=== PATIENT | male | born 1945 | race Caucasian/White ===

== ENCOUNTER 2018-04-14 12:32 | Emergency (ER) | payer OTHER, BC ==
--- NOTE | 2018-04-14 14:08 | EDPHYS ---
Physician Documentation [facility] Name: Dennys Hassan Age: 72 yrs Sex: Male : 1945 Arrival Date: 04/14/2018 Time: 12:36 Bed Treatment Private MD: Wilton Lam V ED Physician Daniel Robertson HPI: 04/14 14:01 This 72 yrs old Male presents to ER via Ambulatory with complaints of BIT jr8 TONGUE. 14:01 Onset: The symptoms/episode began/occurred acutely, today. Associated signs and jr8 symptoms: The patient has no apparent associated signs or symptoms. Severity of symptoms: At their worst the symptoms were mild, in the emergency department the symptoms are unchanged. The patient has not experienced similar symptoms in the past. The patient has not recently seen a physician. 14:01 Bit tongue while chewing . 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 - Social history:: Smoking status: Patient/guardian denies using tobacco. - Ebola Screening: : No symptoms or risks identified at this time. ROS: 14:01 Eyes: Negative for injury, pain, redness, and discharge, Neck: Negative for injury, jr8 pain, and swelling, Cardiovascular: Negative for chest pain, palpitations, and edema, Respiratory: Negative for shortness of breath, cough, wheezing, and pleuritic chest pain, Abdomen/GI: Negative for abdominal pain, nausea, vomiting, diarrhea, and constipation, Back: Negative for injury and pain, MS/Extremity: Negative for injury and deformity, Skin: Negative for injury, rash, and discoloration, Neuro: Negative for headache, weakness, numbness, tingling, and seizure. 14:01 ENT: Positive for tongue pain . Exam: 14:01 Head/Face: Normocephalic, atraumatic. Neck: Trachea midline, no thyromegaly or masses jr8 palpated, and no cervical lymphadenopathy. Supple, full range of motion without nuchal rigidity, or vertebral point tenderness. No Meningismus. Cardiovascular: Regular rate and rhythm with a normal S1 and S2. No gallops, murmurs, or rubs. Normal PMI, no JVD. No pulse deficits. Respiratory: Lungs have equal breath sounds bilaterally, clear to auscultation and percussion. No rales, rhonchi or wheezes noted. No increased work of breathing, no retractions or nasal flaring. Skin: Warm, dry with normal turgor. Normal color with no rashes, no lesions, and no evidence of cellulitis. MS/ Extremity: Pulses equal, no cyanosis. Neurovascular intact. Full, normal range of motion. Neuro: Awake and alert, GCS 15, oriented to person, place, time, and situation. Cranial nerves II-XII grossly intact. Motor strength 5/5 in all extremities. Sensory grossly intact. Cerebellar exam normal. Normal gait. 14:01 ENT: Exam is negative for earache, ear discharge, TM abnormalities, nasal discharge, Mouth: Lips: moist, Oral mucosa: pink and intact, moist, Gums: pink, Tongue: is moist, small less then 1 cm superficial laceration noted to left side of tongue. Vital Signs: 12:45 BP 134 / 65; Pulse 65; Resp 18; Temp 98.6; Pulse Ox 96% ; Weight 90.72 kg; Height 5 ft. sv 8 in. (172.72 cm); Pain 0/10; 12:45 Body Mass Index 30.41 (90.72 kg, 172.72 cm) sv MDM: 13:26 Patient medically screened. [facility] 14:01 Data reviewed: vital signs, nurses notes, and as a result, I will discharge patient. [facility] Data interpreted: Pulse oximetry: on room air is 96 %. Interpretation: normal. Counseling: I had a detailed discussion with the patient and/or guardian regarding: the historical points, exam findings, and any diagnostic results supporting the discharge/admit diagnosis, the need for outpatient follow up, a family practitioner, to return to the emergency department if symptoms worsen or persist or if there are any questions or concerns that arise at home. ED course: Discussed with patient that laceration is superficial. Does not require suture repair. To try and let that side of mouth rest. Soft diet for a few days. Patient good with this and will follow up . Administered Medications: No medications were administered Disposition: 04/15 06:54 Co-signature as Attending Physician, Daniel Robertson MD I agree with the assessment and raúl plan of care. Disposition: 04/14/18 14:07 Discharged to Home. Impression: Laceration tongue . - Condition is Stable. - Discharge Instructions: Tongue Laceration. - Medication Reconciliation Form, Thank You Letter, Antibiotic Education, Prescription Opioid Use form. - Follow up: Private Physician; When: 1 week; Reason: Recheck today's complaints, Continuance of care, Re-evaluation by your physician. - Problem is new. - Symptoms have improved. Signatures: Vidya Parker RN Donya Hassan RN RN aj Anderson, Corey, MD MD cha Roszak, Josh, PA PA jr8 Corrections: (The following items were deleted from the chart) 04/14 14:27 14:07 04/14/2018 14:07 Discharged to Home. Impression: Laceration tongue . Condition is aj Stable. Forms are Medication Reconciliation Form, Thank You Letter, Antibiotic Education, Prescription Opioid Use. Follow up: Private Physician; When: 1 week; Reason: Recheck today's complaints, Continuance of care, Re-evaluation by your physician. Problem is new. Symptoms have improved. jr8
--- NOTE | 2018-04-14 14:08 | ER ---
Nurse's Notes [facility] Name: Dennys Hassan Age: 72 yrs Sex: Male : 1945 Arrival Date: 04/14/2018 Time: 12:36 Bed Treatment Private MD: Wilton Lam V Diagnosis: Laceration tongue Presentation: 04/14 12:43 Presenting complaint: Patient states: bit tongue on the left side about an hour ago sv while eating. Transition of care: patient was not received from another setting of care. Onset of symptoms was April 14, 2018. Care prior to arrival: None. 12:43 Method Of Arrival: Ambulatory sv 12:43 Acuity: TRACI 4 sv 14:27 Risk Assessment: Do you want to hurt yourself or someone else? Patient reports no aj desire to harm self or others. Initial Sepsis Screen: Does the patient meet any 2 criteria? No. Patient's initial sepsis screen is negative. Does the patient have a suspected source of infection? No. Patient's initial sepsis screen is negative. Triage Assessment: 12:43 General: Appears in no apparent distress. Behavior is calm, cooperative, appropriate sv for age. Pain: Complains of pain in tongue Pain currently is 1 out of 10 on a pain scale. EENT: laceration noted to left side of tongue. Neuro: Level of Consciousness is awake, alert, obeys commands, Oriented to person, place, time, situation, Moves all extremities. Full function Gait is steady. Respiratory: Respiratory effort is even, unlabored, Respiratory pattern is regular, symmetrical. Derm: Skin is normal. 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 - Social history:: Smoking status: Patient/guardian denies using tobacco. - Ebola Screening: : No symptoms or risks identified at this time. Screenin:37 Abuse screen: Denies threats or abuse. Denies injuries from another. Nutritional aj screening: No deficits noted. Tuberculosis screening: No symptoms or risk factors identified. Fall Risk None identified. Assessment: 13:35 General: Appears in no apparent distress. comfortable, Behavior is calm, cooperative, aj appropriate for age. Neuro: Level of Consciousness is awake, alert, obeys commands, Oriented to person, place, time, situation, Appropriate for age. Respiratory: Airway is patent Respiratory effort is even, unlabored, Respiratory pattern is regular, symmetrical. EENT: Reports Bite to left side of tongue, small amount of bleeding. 13:36 Derm: Skin is intact, is healthy with good turgor, Skin is pink, warm \T\ dry. normal. aj Vital Signs: 12:45 BP 134 / 65; Pulse 65; Resp 18; Temp 98.6; Pulse Ox 96% ; Weight 90.72 kg; Height 5 ft. sv 8 in. (172.72 cm); Pain 0/10; 12:45 Body Mass Index 30.41 (90.72 kg, 172.72 cm) sv ED Course: 12:36 Patient arrived in ED. rg4 12:36 Wilton Lam MD is Private Physician. rg4 12:44 Triage completed. sv 12:45 Arm band placed on left wrist. sv 13:18 Donya Tubbs, RN is Primary Nurse. aj 13:26 Farhad Antonio PA is PHCP. jr8 13:26 Daniel Robertson MD is Attending Physician. jr8 14:26 Patient has correct armband on for positive identification. aj 14:26 No provider procedures requiring assistance completed. Patient did not have IV access aj during this emergency room visit. Administered Medications: No medications were administered Outcome: 14:07 Discharge ordered by . jr8 14:26 Discharged to home ambulatory. aj 14:26 Condition: good 14:26 Discharge instructions given to patient, Instructed on discharge instructions, follow up and referral plans. Demonstrated understanding of instructions, follow-up care. 14:27 Patient left the ED. aj Signatures: Vidya Parker RN RN Donya Tubbs RN RN aj Roszak, Josh, PA PA jr8 Fely Perez rg4 Corrections: (The following items were deleted from the chart) 12:46 12:43 Acuity: TRACI 5 sv sv
== END 2018-04-14 14:27 | disposition home or self-care (01) ==
LOC: ER 12:32
DX: S01.512A Laceration without foreign body of oral cavity, initial encounter (principal); I10 Essential (primary) hypertension; X58.XXXA Exposure to other specified factors, initial encounter; Y93.89 Activity, other specified; Y92.9 Unspecified place or not applicable; Y99.9 Unspecified external cause status
CPT/HCPCS: 99281

== ENCOUNTER 2020-06-06 09:26 | Emergency (ER) | payer OTHER, BC ==
--- NOTE | 2020-06-06 10:40 | RAD REPORT ---
EXAM DESCRIPTION: RAD - Foot Left 3 View - 06/06/2020 10:15 am CLINICAL HISTORY: PAIN COMPARISON: No comparisons FINDINGS: Small fracture is suspected along the dorsal base of distal phalanx of the great toe media lly.
--- NOTE | 2020-06-06 11:29 | EDPHYS ---
Physician Documentation [facility] Name: Dennys Hassan Age: 74 yrs Sex: Male : 1945 Arrival Date: 06/06/2020 Time: 09:28 Bed 6 Private MD: Wilton Lam V ED Physician Ramón Moore HPI: 06/06 09:58 This 74 yrs old Male presents to ER via Ambulatory with complaints of Toe pm1 Injury. 09:58 The patient presents with pain, that is acute. The complaints affect the left foot. pm1 Context: The problem was sustained at home, resulted from stubbing toe on door. the patient can fully bear weight, the patient is able to ambulate. Onset: The symptoms/episode began/occurred 1.5 hour(s) ago. Modifying factors: The symptoms are alleviated by OTC meds, the symptoms are aggravated by weight bearing. Associated signs and symptoms: Pertinent positives: swelling, Tenderness, Pertinent negatives: fever, nausea, vomiting. Severity of symptoms: in the emergency department the symptoms have improved, moderately. The patient has not experienced similar symptoms in the past. 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 - Social history:: Smoking status: Patient denies any tobacco usage or history of. ROS: 09:58 MS/extremity: Positive for pain, swelling, of the left first toe, Negative for pm1 decreased range of motion, deformity. 09:58 Constitutional: Negative for fever, chills, and weight loss, Cardiovascular: Negative for chest pain, palpitations, and edema, Respiratory: Negative for shortness of breath, cough, wheezing, and pleuritic chest pain, Skin: Negative for injury, rash, and discoloration, Neuro: Negative for headache, weakness, numbness, tingling, and seizure. 09:58 All other systems are negative. Exam: 09:58 Constitutional: This is a well developed, well nourished patient who is awake, alert, pm1 and in no acute distress. Head/Face: Normocephalic, atraumatic. 09:58 Skin: Warm, dry with normal turgor. Normal color with no rashes, no lesions, and no evidence of cellulitis. 09:58 Cardiovascular: Exam negative for acute changes, Rate: normal, Rhythm: regular, Pulses: no pulse deficits are appreciated. 09:58 Respiratory: Exam negative for acute changes, respiratory distress, shortness of breath. 09:58 Musculoskeletal/extremity: Extremities: grossly normal except: noted in the left first toe: There is no evidence of decreased ROM, deformity. 09:58 Neuro: Exam negative for acute changes, Orientation: is normal, Mentation: is normal, Motor: is normal, moves all fours. Vital Signs: 09:35 BP 137 / 73; Pulse 71; Resp 16; Temp 98; Pulse Ox 98% ; Weight 86.18 kg; Height 5 ft. 8 bp in. (172.72 cm); 11:49 BP 131 / 69; Pulse 65; Resp 17; Temp 98; Pulse Ox 98% ; bp 09:35 Body Mass Index 28.89 (86.18 kg, 172.72 cm) bp MDM: 09:30 Patient medically screened. pm1 09:56 Data reviewed: vital signs. Data interpreted: Pulse oximetry: on room air is 98 %. pm1 Interpretation: normal. 09:56 ED course: patient took Aleve 1.5 hours prior to arrival that has helped. Patient would pm1 like additional pain medication but he drove here by himself. Informed the patient that I would give him a prescription for pain medications but driving home on narcotic medications given in the ER would not be safe. 11:28 Counseling: I had a detailed discussion with the patient and/or guardian regarding: the pm1 historical points, exam findings, and any diagnostic results supporting the discharge/admit diagnosis, radiology results, the need for outpatient follow up, a shift foreman, to return to the emergency department if symptoms worsen or persist or if there are any questions or concerns that arise at home. 06/06 09:39 Order name: Foot Left 3 View XRAY; Complete Time: 11:01 pm1 06/06 11:32 Order name: Post-op Orthopedic Shoe; Complete Time: 11:48 pm1 06/06 11:32 Order name: Crutches; Complete Time: 11:48 pm1 Administered Medications: No medications were administered Disposition: 14:27 Co-signature as Attending Physician, Ramón Moore MD. rn Disposition: 06/06/20 11:29 Discharged to Home. Impression: Nondisplaced fracture of distal phalanx of left great toe. - Condition is Stable. - Discharge Instructions: Crutch Use, Toe Fracture. - Prescriptions for Tylenol- Codeine #3 300-30 mg Oral Tablet - take 2 tablets by ORAL route every 6 hours As needed; 20 tablet. - Medication Reconciliation Form, Thank You Letter, Antibiotic Education, Prescription Opioid Use form. - Follow up: Emergency Department; When: As needed; Reason: Worsening of condition. Follow up: Private Physician; When: 2 - 3 days; Reason: Recheck today's complaints, Continuance of care, Re-evaluation by your physician. - Problem is new. - Symptoms have improved. Signatures: Dispatcher [employer] EDRamón Yu MD MD rn Jose L Hoffman, CHAIR PAD MAKER CHAIR PAD MAKER pm1 Nelson Gloria, RN RN bp Corrections: (The following items were deleted from the chart) 11:56 11:29 06/06/2020 11:29 Discharged to Home. Impression: Nondisplaced fracture of distal bp phalanx of left great toe. Condition is Stable. Forms are Medication Reconciliation Form, Thank You Letter, Antibiotic Education, Prescription Opioid Use. Follow up: Emergency Department; When: As needed; Reason: Worsening of condition. Follow up: Private Physician; When: 2 - 3 days; Reason: Recheck today's complaints, Continuance of care, Re-evaluation by your physician. Problem is new. Symptoms have improved. pm1
--- NOTE | 2020-06-06 11:29 | ER ---
Nurse's Notes [facility] Name: Dennys Hassan Age: 74 yrs Sex: Male : 1945 Arrival Date: 06/06/2020 Time: 09:28 Bed 6 Private MD: Wilton Lam V Diagnosis: Nondisplaced fracture of distal phalanx of left great toe Presentation: 06/06 09:35 Chief complaint: Patient states: STUBBED LEFT GREAT TOE. Coronavirus screen: At this bp time, the client does not indicate any symptoms associated with coronavirus-19. Ebola Screen: No symptoms or risks identified at this time. Initial Sepsis Screen: Does the patient meet any 2 criteria? No. Patient's initial sepsis screen is negative. Does the patient have a suspected source of infection? No. Patient's initial sepsis screen is negative. Risk Assessment: Do you want to hurt yourself or someone else? Patient reports no desire to harm self or others. Onset of symptoms was June 06, 2020 at 08:00. 09:35 Method Of Arrival: Ambulatory bp 09:35 Acuity: TRACI 4 bp Triage Assessment: 09:37 General: Appears in no apparent distress. uncomfortable, Behavior is cooperative, bp appropriate for age, anxious. Pain: Complains of pain in plantar aspect of left first toe. EENT: No deficits noted. Neuro: No deficits noted. Cardiovascular: No deficits noted. Respiratory: No deficits noted. GI: No signs and/or symptoms were reported involving the gastrointestinal system. : No signs and/or symptoms were reported regarding the genitourinary system. Derm: No deficits noted. Musculoskeletal: Reports pain in LEFT GREAT TOE. 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 - Social history:: Smoking status: Patient denies any tobacco usage or history of. Screenin:39 Abuse screen: Denies threats or abuse. Denies injuries from another. Nutritional bp screening: No deficits noted. Tuberculosis screening: No symptoms or risk factors identified. Fall Risk None identified. Assessment: 09:39 General: SEE TRIAGE NOTE. bp 09:49 Reassessment: xray at bedside. jr10 11:48 Reassessment: PT D/C HOME AMBULATORY, DX WITH NONDISPLACED FX OF LEFT GREAT TOE. bp Vital Signs: 09:35 BP 137 / 73; Pulse 71; Resp 16; Temp 98; Pulse Ox 98% ; Weight 86.18 kg; Height 5 ft. 8 bp in. (172.72 cm); 11:49 BP 131 / 69; Pulse 65; Resp 17; Temp 98; Pulse Ox 98% ; bp 09:35 Body Mass Index 28.89 (86.18 kg, 172.72 cm) bp ED Course: 09:28 Patient arrived in ED. as 09:28 Wilton Lam MD is Private Physician. as 09:30 Jose L Hoffman [facility]. pm1 09:30 Ramón Moore MD is Attending Physician. pm1 09:32 Nelson Gloria, PAULIE is Primary Nurse. bp 09:37 Triage completed. bp 09:37 Arm band placed on. bp 09:45 Patient has correct armband on for positive identification. Bed in low position. Call bp light in reach. Side rails up X2. 10:10 Foot Left 3 View XRAY In Process Unspecified. EDMS 11:49 No provider procedures requiring assistance completed. Patient did not have IV access bp during this emergency room visit. Ortho shoe applied to left foot. Administered Medications: No medications were administered Outcome: 11:29 Discharge ordered by MD. pm1 11:50 Discharged to home ambulatory. bp 11:50 Condition: stable 11:50 Discharge instructions given to patient, Instructed on discharge instructions, follow up and referral plans. medication usage, Demonstrated understanding of instructions, follow-up care, medications, splint care, Prescriptions given X 1. 11:56 Patient left the ED. bp Signatures: Dispatcher [employer] EDMS Rebecca Hill as Jose L Hoffman, [employer]ON[employer] GAS DISPATCHER pm1 Nelson Gloria, RN RN bp Joycelyn King RN RN jr10
[2020-06-06 12:00] VITALS: TEMP 98; O2SAT 98
[2020-06-06 12:02] VITALS: BP 131/69
== END 2020-06-06 11:56 | disposition home or self-care (01) ==
LOC: ER 09:26
DX: S92.425A Nondisplaced fracture of distal phalanx of left great toe, initial encounter for closed fracture (principal); I10 Essential (primary) hypertension; W22.8XXA Striking against or struck by other objects, initial encounter; Y93.9 Activity, unspecified; Y92.9 Unspecified place or not applicable

== ENCOUNTER 2021-09-02 12:20 | Emergency (ER) | payer OTHER, BC ==
[2021-09-02] MEDS ORDERED: LIDOCAINE 1% MPF 5 ML VIAL ONE (12:33)
[2021-09-02] MEDS ORDERED: MUPIROCIN 2% OINT 22GM TUBE TOP ONE (13:14)
--- NOTE | 2021-09-02 13:19 | EDPHYS ---
Physician Documentation [facility] Name: Dennys Hassan Age: 76 yrs Sex: Male : 1945 Arrival Date: 09/02/2021 Time: 12:21 Bed 7 Private MD: Wilton Lam V ED Physician Daniel Robertson HPI: 09/02 13:12 This 76 yrs old Male presents to ER via Ambulatory with complaints of raúl Laceration - finger. 13:12 The patient or guardian reports a laceration, irregular, .25 cm(s), tenderness. The raúl complaints affect the left hand diffusely. Context: The problem was sustained at home, outdoors. Onset: The symptoms/episode began/occurred just prior to arrival. Modifying factors: The symptoms are alleviated by elevation, the symptoms are aggravated by movement. Associated signs and symptoms: The patient has no apparent associated signs or symptoms. Severity of symptoms: At their worst the symptoms were mild, in the emergency department the symptoms are unchanged. The patient has not experienced similar symptoms in the past. 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 - Social history:: Smoking status: Patient denies any tobacco usage or history of. - Family history:: not pertinent. ROS: 13:12 Constitutional: Negative for fever, chills, and weight loss, Eyes: Negative for injury, raúl pain, redness, and discharge, ENT: Negative for injury, pain, and discharge, Neck: Negative for injury, pain, and swelling, Cardiovascular: Negative for chest pain, palpitations, and edema, Respiratory: Negative for shortness of breath, cough, wheezing, and pleuritic chest pain, Abdomen/GI: Negative for abdominal pain, nausea, vomiting, diarrhea, and constipation, Back: Negative for injury and pain, : Negative for injury, bleeding, discharge, and swelling, Skin: Negative for injury, rash, and discoloration, Neuro: Negative for headache, weakness, numbness, tingling, and seizure, Psych: Negative for depression, anxiety, suicide ideation, homicidal ideation, and hallucinations, Allergy/Immunology: Negative for hives, rash, and allergies, Endocrine: Negative for neck swelling, polydipsia, polyuria, polyphagia, and marked weight changes, Hematologic/Lymphatic: Negative for swollen nodes, abnormal bleeding, and unusual bruising. 13:12 MS/extremity: Positive for laceration, of the palmar aspect of distal phalanx of left middle finger. Exam: 13:12 Constitutional: This is a well developed, well nourished patient who is awake, alert, raúl and in no acute distress. Head/Face: Normocephalic, atraumatic. Eyes: Pupils equal round and reactive to light, extra-ocular motions intact. Lids and lashes normal. Conjunctiva and sclera are non-icteric and not injected. Cornea within normal limits. Periorbital areas with no swelling, redness, or edema. ENT: Nares patent. No nasal discharge, no septal abnormalities noted. Tympanic membranes are normal and external auditory canals are clear. Oropharynx with no redness, swelling, or masses, exudates, or evidence of obstruction, uvula midline. Mucous membranes moist. Neck: Trachea midline, no thyromegaly or masses palpated, and no cervical lymphadenopathy. Supple, full range of motion without nuchal rigidity, or vertebral point tenderness. No Meningismus. Chest/axilla: Normal chest wall appearance and motion. Nontender with no deformity. No lesions are appreciated. Cardiovascular: Regular rate and rhythm with a normal S1 and S2. No gallops, murmurs, or rubs. Normal PMI, no JVD. No pulse deficits. Respiratory: Lungs have equal breath sounds bilaterally, clear to auscultation and percussion. No rales, rhonchi or wheezes noted. No increased work of breathing, no retractions or nasal flaring. Abdomen/GI: Soft, non-tender, with normal bowel sounds. No distension or tympany. No guarding or rebound. No evidence of tenderness throughout. Back: No spinal tenderness. No costovertebral tenderness. Full range of motion. Male : Normal genitalia with no discharge or lesions. Skin: Warm, dry with normal turgor. Normal color with no rashes, no lesions, and no evidence of cellulitis. Neuro: Awake and alert, GCS 15, oriented to person, place, time, and situation. Cranial nerves II-XII grossly intact. Motor strength 5/5 in all extremities. Sensory grossly intact. Cerebellar exam normal. Normal gait. Psych: Awake, alert, with orientation to person, place and time. Behavior, mood, and affect are within normal limits. 13:12 Musculoskeletal/extremity: Circulation is intact in all extremities. the palmar aspect of distal phalanx of left middle finger Compartment Syndrome exam of affected extremity: is normal. DVT Exam: no swelling, no tenderness, negative Homans' sign noted on exam, no appreciated bluish discoloration, no erythema, no increased warmth, pain. Vital Signs: 12:29 BP 160 / 99; Pulse 74; Resp 16; Temp 98.2; Pulse Ox 97% ; Weight 87.54 kg; Height 5 ft. ll1 8 in. (172.72 cm); Pain 2/10; 13:32 BP 141 / 97; Pulse 65; Resp 16; Pulse Ox 96% on R/A; ll1 12:29 Body Mass Index 29.35 (87.54 kg, 172.72 cm) ll1 MDM: 12:24 Patient medically screened. raúl 13:16 Differential diagnosis: contusion, abrasion. Data reviewed: vital signs, nurses notes. raúl Data interpreted: nurse monitoring: not applicable for this patient encounter. rate is 74 beats/min, rhythm is regular, Pulse oximetry: on room air is 97 %. Counseling: I had a detailed discussion with the patient and/or guardian regarding: the historical points, exam findings, and any diagnostic results supporting the discharge/admit diagnosis, the need for outpatient follow up, for definitive care, a family practitioner. 09/02 13:21 Order name: Wound Care; Complete Time: 13:28 raúl Administered Medications: 13:20 Drug: Bactroban (mupirocin) Ointment 2 % 1 application Route: Topical; Site: left hand; ll1 13:31 Follow up: Response: No adverse reaction ll1 13:26 Drug: KeFLEX (cephalexin) 500 mg Route: PO; ll1 13:31 Follow up: Response: No adverse reaction ll1 Disposition Summary: 09/02/21 13:17 Discharge Ordered Location: Home raúl Problem: new raúl Symptoms: have improved raúl Condition: Stable raúl Diagnosis - Laceration without foreign body of left hand - middle finger raúl Followup: raúl - With: Wilton Lam MD - When: 5 - 6 days - Reason: Recheck today's complaints, Continuance of care, Re-evaluation by your physician Discharge Instructions: - Discharge Summary Sheet raúl - Laceration Care, Adult raúl - Laceration Care, Adult, [id number] Forms: - Medication Reconciliation Form raúl - Thank You Letter raúl - Antibiotic Education raúl - Prescription Opioid Use [facility] Prescriptions: - Centany 2 % Topical ointment - apply 1 application by TOPICAL route 3 times per day; 15 gram; Refills: 0, raúl Product Selection Permitted - Cephalexin 500 mg Oral Capsule - take 1 capsule by ORAL route every 6 hours for 7 days; 28 capsule; Refills: 0, raúl Product Selection Permitted Signatures: Dispatcher [employer] Daniel Wen MD MD cha Lewis, Lynsay, RN RN ll1
--- NOTE | 2021-09-02 13:19 | ER ---
Nurse's Notes [facility] Name: Dennys Hassan Age: 76 yrs Sex: Male : 1945 Arrival Date: 09/02/2021 Time: 12:21 Bed 7 Private MD: Wilton Lam V Diagnosis: Laceration without foreign body of left hand-middle finger Presentation: 09/02 12:29 Chief complaint: Patient states: L hand 3rd digit laceration with a machine zipper trimmer today ll1 at noon. No blood thinners. Coronavirus screen: Vaccine status: Patient reports receiving the 2nd dose of the covid vaccine. Client denies travel out of the [place] in the last 14 days. At this time, the client does not indicate any symptoms associated with coronavirus-19. Ebola Screen: Patient denies travel to an Ebola-affected area in the 21 days before illness onset. Complicating Factors: There are no complicating factors for this patient. Initial Sepsis Screen: Does the patient meet any 2 criteria? No. Patient's initial sepsis screen is negative. Does the patient have a suspected source of infection? Yes: Skin breakdown/wound. Risk Assessment: Do you want to hurt yourself or someone else? Patient reports no desire to harm self or others. Onset of symptoms was September 02, 2021. 12:29 Method Of Arrival: Ambulatory ll1 12:29 Acuity: TRACI 4 ll1 Triage Assessment: 12:31 General: Appears in no apparent distress. Behavior is calm, cooperative, appropriate ll1 for age. Pain: Complains of pain in left hand Pain currently is 2 out of 10 on a pain scale. Quality of pain is described as aching, Aggravated by increased activity. Derm: Reports laceration L hand 3rd digit. Musculoskeletal: Circulation, motion, and sensation intact. Capillary refill < 3 seconds. Injury Description: Laceration. 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 - Social history:: Smoking status: Patient denies any tobacco usage or history of. - Family history:: not pertinent. Screenin:31 Abuse screen: Denies threats or abuse. Nutritional screening: No deficits noted. ll1 Tuberculosis screening: No symptoms or risk factors identified. Fall Risk Total Rice Fall Scale indicates No Risk (0-24 pts). Assessment: 13:31 Reassessment: No changes from previously documented assessment. Patient and/or family ll1 updated on plan of care and expected duration. Pain level reassessed. Patient is alert, oriented x 3, equal unlabored respirations, skin warm/dry/pink. 13:31 Injury Description: Laceration is jagged, superficial, 0.5 to 2.5 cm long. ll1 Vital Signs: 12:29 BP 160 / 99; Pulse 74; Resp 16; Temp 98.2; Pulse Ox 97% ; Weight 87.54 kg; Height 5 ft. ll1 8 in. (172.72 cm); Pain 2/10; 13:32 BP 141 / 97; Pulse 65; Resp 16; Pulse Ox 96% on R/A; ll1 12:29 Body Mass Index 29.35 (87.54 kg, 172.72 cm) 1 ED Course: 12:21 Patient arrived in ED. as 12:21 Wilton Lam MD is Private Physician. as 12:24 Daniel Robertson MD is Attending Physician. [facility] 12:28 Juan Manuel Fenton, PAULIE is Primary Nurse. ll1 12:28 Arm band placed on Patient placed in an exam room, on a stretcher. 1 12:31 Triage completed. 1 12:31 Patient has correct armband on for positive identification. Bed in low position. Call ll1 light in reach. Side rails up X 1. Pulse ox on. NIBP on. 13:17 Wilton Lam MD is Referral Physician. raúl 13:28 Wound care: to abrasion, located on left hand was dressed with band aid, bacitracin, ll1 Patient tolerated well. 13:31 No provider procedures requiring assistance completed. Patient did not have IV access ll1 during this emergency room visit. Administered Medications: 13:20 Drug: Bactroban (mupirocin) Ointment 2 % 1 application Route: Topical; Site: left hand; ll1 13:31 Follow up: Response: No adverse reaction 1 13:26 Drug: KeFLEX (cephalexin) 500 mg Route: PO; ll1 13:31 Follow up: Response: No adverse reaction 1 Outcome: 13:17 Discharge ordered by . raúl 13:31 Discharged to home ambulatory. 1 13:31 Condition: stable 13:31 Discharge instructions given to patient, Instructed on discharge instructions, follow up and referral plans. wound care, Demonstrated understanding of instructions, follow-up care, medications, wound care, Prescriptions given X 2. 13:32 Patient left the ED. 1 Signatures: Daniel Robertson MD MD cha Martinez, Amelia as Lewis, Lynsay, RN RN 1
[2021-09-02] MEDS ORDERED: CEPHALEXIN 250 MG CAP ONE (13:22)
[2021-09-02 14:27] VITALS: TEMP 98.2
[2021-09-02 14:29] VITALS: BP 141/97; O2SAT 96
== END 2021-09-02 13:32 | disposition home or self-care (01) ==
LOC: ER 12:20
DX: S61.213A Laceration without foreign body of left middle finger without damage to nail, initial encounter (principal); I10 Essential (primary) hypertension; Z88.3 Allergy status to other anti-infective agents
CPT/HCPCS: 99284

== ENCOUNTER 2023-08-05 18:30 | Emergency (ER) | payer OTHER, BC ==
[2023-08-05 20:02] LABS: Hematocrit 46.4 % (39.6-49.0); Lymphocytes % 13.3 % (15.3-44.8); MCV 89.4 fL (80-100); MPV 8.3 fL (7.6-11.3); Platelets 136 thou/uL (152-406); RBC Red Blood Cell Count 5.18 M/uL (4.33-5.43)
[2023-08-05 20:03] LABS: Protime INR 1.07
[2023-08-05 20:18] LABS: Magnesium 2.1 mg/dL (1.6-2.4); Potassium 3.9 mEq/L (3.5-5.1); Troponin High Sensitivity 9.3 pg/mL (<58.9)
[2023-08-05] MEDS ORDERED: TDAP (DIPHTH,PERTUSS(ACELL),TET VAC) 0.5 ML VIAL IMVAC ONE (20:53)
[2023-08-05] MEDS ORDERED: ACETAMINOPHEN 325 MG TABLET ONE (20:53)
--- NOTE | 2023-08-05 21:02 | RAD REPORT ---
EXAM DESCRIPTION: RAD - Knee Right 3 View - 08/05/2023 8:12 pm CLINICAL HISTORY: PAIN COMPARISON: No comparisons TECHNIQUE: Right knee, 3 views. FINDINGS: No fracture, dislocation or periosteal reaction.No joint effusion seen. Mild degenerative changes with marginal spurring. No soft tissue abnormality. IMPRESSION: No acute osseus abnormality. Mild degenerative changes.
--- NOTE | 2023-08-05 21:03 | RAD REPORT ---
EXAM DESCRIPTION: RAD - Hand Right 3 View - 08/05/2023 8:12 pm CLINICAL HISTORY: PAIN COMPARISON: Head C Spine Cap Wo Con dated 08/05/2023 TECHNIQUE: Right hand, 3 views. FINDINGS: No fracture is identified. There is no dislocation or periosteal reaction noted. No foreign body or other soft tissue abnormalit y. IMPRESSION: Negative right hand examination.
--- NOTE | 2023-08-05 21:55 | RAD REPORT ---
EXAM DESCRIPTION: CT - Head C Spine Cap Wo Con - 08/05/2023 8:29 pm CLINICAL HISTORY: fall COMPARISON: Abdomen Exam Complete dated 09/24/2022 TECHNIQUE: Head and cervical spine CT images were obtained without IV contrast. Chest, abdomen, and pelvis CT images were obtained also without IV contrast. Multiplanar reformats were generated and rev iewed. All CT scans are performed using dose optimization technique as appropriate and may include automated exposure control or mA/KV adjustment according to patient size. FINDINGS: CT HEAD: No intracranial hemorrhage, mass effect, or edema. No evidence of acute territorial infarct. No midli ne shift or abnormal fluid collection. The ventricles are normal in caliber and configuration for age . Basal cisterns are patent. Mastoid aircells and paranasal sinuses are clear. No acute skull fractur e. CT CERVICAL SPINE: No acute cervical spine fracture or subluxation. Vertebral body heights are well maintained. Facet luis daniel ints are normal in alignment. No hyperattenuating canal hematoma. Prevertebral and paraspinous soft t issues are unremarkable. CT CHEST: Peripheral reticular and ground-glass opacities, favored to represent atelectasis. Elevation of the r ight hemidiaphragm No pneumothorax, pulmonary contusion or pleural fluid collection. Mild cardiomegal y. No mediastinal hematoma and the aorta and pulmonary arteries are unremarkable. No chest will mass or abnormal axillary finding. No displaced rib fracture or other significant bony finding. CT ABDOMEN/ PELVIS: No evidence of traumatic injury to solid abdominal viscera. Gallbladder and biliary tree are unremark able. No bowel injury or significant finding. Multiple exophytic left renal hypoattenuating lesions, not well characterized but favored to represent cysts. The largest measures 13 centimeter none was de monstrated on previous ultrasound. Absent right kidney. Numerous splenic small granulomas. No free ai r, free fluid or abnormal fat stranding. No urinary bladder abnormality. Buckle fracture along the anterior cortex of S4 near the junction with S5. Presacral edema. IMPRESSION: Buckled fracture along the anterior cortex of S4, with some presacral edema, likely acut e/recent. No other acute traumatic findings. Absent right kidney and numerous cortical exophytic lesions of the left kidney, not well characterize d, although the largest of these demonstrate cystic features on a prior abdominal ultrasound. Other findings as detailed above.
--- NOTE | 2023-08-05 22:22 | EDPHYS ---
Physician Documentation [facility] Name: Dennys Hassan Age: 77 yrs Sex: Male : 1945 Arrival Date: 08/05/2023 Time: 18:30 Bed 10 Private MD: ED Physician Ryan Sevilla HPI: 08/05 19:40 This 77 yrs old Male presents to ER via Ambulatory with complaints of Fall Injury, Hand cp Injury. 19:40 Details of fall: The patient fell from an upright position, while standing. Onset: The cp symptoms/episode began/occurred today. Associated injuries: The patient sustained right hand and buttocks and right knee. Patient reports falling times 2 today with initial fall occurring outside after tripping over piece of wire and landing on gravel. Patient reports he was able to get up and went into home. Reports sitting down to use restroom and after standing, reportedly falling into door and then onto floor in home. Patient does not believe he lost consciousness but is not able to remember all the events of the second fall. 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 - Social history:: Smoking status: Patient denies any tobacco usage or history of. ROS: 19:45 Constitutional: Negative for body aches, chills, fever, poor PO intake, cp 19:45 Eyes: Negative for injury, pain, redness, and discharge, cp 19:45 ENT: Negative for drainage from ear(s), ear pain, sore throat, difficulty swallowing, difficulty handling secretions, 19:45 Neck: Negative for stiffness, 19:45 Cardiovascular: Negative for chest pain, palpitations, 19:45 Respiratory: Negative for cough, shortness of breath, wheezing, 19:45 Abdomen/GI: Negative for abdominal pain, vomiting, diarrhea, constipation, black/tarry stool, rectal bleeding, 19:45 Back: Positive for pain at rest, pain with movement, of the sacrum, 19:45 MS/extremity: Positive for abrasion, ecchymosis, pain, swelling, tenderness, of the right knee and right hand, 19:45 Neuro: Negative for altered mental status, seizure activity, weakness, 19:45 All other systems are negative, Exam: 20:02 ECG was reviewed by the Attending Physician. cp 08/06 18:28 Head/Face: Normocephalic, atraumatic. cp Constitutional: The patient appears in no acute distress, alert, awake, non-diaphoretic, non-toxic, well developed, well nourished, Eyes: Periorbital structures: appear normal, Pupils: equal, round, and reactive to light and accomodation, Extraocular movements: intact throughout, Conjunctiva: normal, no exudate, no injection, Sclera: no appreciated abnormality, Lids and lashes: appear normal, bilaterally, ENT: External ear(s): are unremarkable, Nose: is normal, Mouth: Lips: moist, Oral mucosa: pink and intact, moist, Posterior pharynx: Airway: no evidence of obstruction, patent, Neck: C-spine: vertebral tenderness, is not appreciated, crepitus, is not appreciated, ROM/movement: pain, is not appreciated, limited range of motion, is not appreciated, Chest/axilla: Inspection: normal, Palpation: is normal, no crepitus, no tenderness, Cardiovascular: Rate: normal, Rhythm: regular, Edema: is not appreciated, JVD: is not appreciated, Respiratory: the patient does not display signs of respiratory distress, Respirations: normal, no use of accessory muscles, no retractions, labored breathing, is not present, Breath sounds: are clear throughout, no decreased breath sounds, no stridor, no wheezing, Abdomen/GI: Inspection: abdomen appears normal, Palpation: abdomen is soft and non-tender, in all quadrants, Back: pain, that is moderate, of the sacrum, Musculoskeletal/extremity: Extremities: grossly normal except: noted in the right hand and right knee: abrasion, pain, swelling, tenderness, There is no evidence of decreased ROM, deformity, ROM: full active range of motion, in the right hand and right knee, Neuro: Orientation: to person, place \T\ time. Mentation: is normal, Motor: moves all fours, strength is normal, Sensation: is normal, Vital Signs: 08/05 18:52 BP 148 / 86; Pulse 68; Resp 18; Temp 97.9; Pulse Ox 100% ; Weight 80.74 kg; Pain 6/10; ap3 20:10 BP 137 / 80 Supine; Pulse 56; Resp 14; Pulse Ox 100% on R/A; cm10 20:13 BP 140 / 86 Sitting; Pulse 64; Resp 16; Pulse Ox 98% on R/A; cm10 20:15 BP 139 / 87 Standing; Pulse 61; Resp 15; Pulse Ox 99% on R/A; cm10 20:50 BP 138 / 82; Pulse 56; Resp 16; Pulse Ox 100% on R/A; cm10 21:45 BP 136 / 79; Pulse 56; Resp 18 S; Pulse Ox 96% on R/A; cm10 22:00 BP 133 / 81; Pulse 55; Resp 16 S; Pulse Ox 97% on R/A; cm10 22:45 BP 147 / 82; Pulse 56; Resp 18 S; Pulse Ox 99% on R/A; cm10 18:52 Pain Scale: Adult ap3 MDM: 19:11 Patient medically screened. cp 19:45 Differential diagnosis: closed head injury, contusion, fracture, laceration, multiple cp trauma. 22:18 Management of patient was discussed with the following: Cooker Chip: DR Patel who cp recommends pain control for sacral fracture. I considered the following discharge prescriptions or medication management in the emergency department Medications were administered in the Emergency Department. See MAR. 22:20 Data reviewed: vital signs, nurses notes, lab test result(s), EKG, radiologic studies, cp CT scan, plain films. 22:20 Consideration of Admission/Observation Escalation of care including cp admission/observation considered. Counseling: I had a detailed discussion with the patient and/or guardian regarding the historical points, exam findings, and any diagnostic results supporting the discharge/admit diagnosis, lab results, radiology results, the need for outpatient follow up, a orthopedic surgeon, to return to the emergency department if symptoms worsen or persist or if there are any questions or concerns that arise at home. Refusal of service: The patient/guardian displays adequate decision making capability and despite a detailed discussion of alternatives, benefits, risks, and consequences refuses: Admission to the hospital for further work-up and treatment, due to concern for syncope, recommendation for observation made but declined by patient at this time. Patient requesting discharge to home to /u with ortho and pcp. Recommend OTC Tylenol for pain as pain controlled in ED after dose of Tylenol given. 08/05 19:39 Order name: Basic Metabolic Panel; Complete Time: 21:58 cp 08/05 21:58 Interpretation: Normal except: GLUC 107; BUN 27; GFR 57. cp 08/05 19:39 Order name: CBC with Diff; Complete Time: 21:58 cp 08/05 21:58 Interpretation: Normal except: PLT 136; LYM% 13.3. cp 08/05 19:39 Order name: Magnesium; Complete Time: 21:58 cp 08/05 19:39 Order name: PT-INR; Complete Time: 21:58 cp 08/05 19:39 Order name: Troponin HS; Complete Time: 21:58 cp 08/05 19:39 Order name: CT Traumagram (Head C Spine CAP wo con); Complete Time: 21:58 cp 08/05 19:39 Order name: XRAY Hand RIGHT 3 View; Complete Time: 21:58 cp 08/05 19:39 Order name: XRAY Knee RIGHT 3 view; Complete Time: 21:58 cp 08/05 19:39 Order name: EKG; Complete Time: 19:40 cp 08/05 19:39 Order name: Orthostatics; Complete Time: 20:20 cp 08/05 19:39 Order name: Cardiac monitoring; Complete Time: 19:58 cp 08/05 19:39 Order name: EKG - Nurse/Tech; Complete Time: 19:52 cp 08/05 19:39 Order name: IV Saline Lock; Complete Time: 19:52 cp 08/05 19:39 Order name: Labs collected and sent; Complete Time: 19:52 cp 08/05 19:39 Order name: O2 Per Protocol; Complete Time: 19:52 cp 08/05 19:39 Order name: O2 Sat Monitoring; Complete Time: 19:52 cp 08/05 22:18 Order name: Wound dressing; Complete Time: 22:52 cp EC:02 Rate is 57 beats/min. Rhythm is regular. FL interval is prolonged at 248 msec. QRS cp interval is normal. QT interval is normal. T waves are Inverted in leads III, aVR. Interpreted by me. Reviewed by me. Administered Medications: 20:48 Drug: Tetanus-Diphtheria Toxoid IM Adult 0.5 ml IM once; Provide Vaccine Information cm10 Statement (VIS). {Process Pumper: [employer]; Exp: Sat Mar 12 2025; Lot #: [id number]; Series: 1 of 1; Patient Consent: Obtained; Date/Time: ; Source Name: Dennys Hassan; Source Relationship: Self; Address Information: [address] [place] [address]; ; Education: Provided; VIS Presented Date: ; VIS Publication: Tetanus/Diphtheria (Td) Vaccine VIS 01/28/2017 (historic)} Route: IM; Site: left deltoid; 21:25 Follow up: Response: (VIS) Vaccine information sheet provided today. Questions and/or cm10 concerns addressed. VIS edition date: May 25, 2021.; No adverse reaction 20:50 Drug: Acetaminophen PO 650 mg PO once Route: PO; cm10 21:25 Follow up: Response: No adverse reaction cm10 Disposition: 21:55 I was immediately available on-site in the Emergency Department for consultation in the ms3 care of the patient. Disposition Summary: 08/05/23 22:21 Discharge Ordered Notes: Location: Home cp Problem: new cp Symptoms: have improved cp Condition: Stable cp Diagnosis - Fall on same level from slipping, tripping and stumbling with subsequent striking cp against object - Contusion of right hand cp - Contusion of right knee cp - Syncope Near cp - Sacral 4 buckle type fracture cp Followup: cp - With: Drake Patel MD - When: 2 - 3 days - Reason: sacral fracture Followup: cp - With: Wilton Lam MD - When: 1 - 2 days - Reason: Recheck today's complaints Discharge Instructions: - Discharge Summary Sheet cp - Hand Contusion cp - Near-Syncope cp - Simple Pelvic Fracture, Adult cp - Acute Knee Pain, Adult cp Forms: - Medication Reconciliation Form cp - Thank You Letter cp - Antibiotic Education cp - Prescription Opioid Use cp - Patient Portal Instructions cp - Leadership Thank You Letter cp Signatures: Dispatcher [employer] EDMS Daniel Arango PA PA cp Prokisch, Amanda, RN RN ap3 Ryan Sevilla DO DO ms3 Magaly Hill RN RN cm10 Corrections: (The following items were deleted from the chart) 08/06 18:28 18:26 Constitutional: Negative for body aches, chills, fever, poor PO intake, cp cp
--- NOTE | 2023-08-05 22:22 | ER ---
Nurse's Notes [facility] Name: Dennys Hassan Age: 77 yrs Sex: Male : 1945 Arrival Date: 08/05/2023 Time: 18:30 Bed 10 Private MD: Diagnosis: Fall on same level from slipping, tripping and stumbling with subsequent striking against object;Contusion of right hand;Contusion of right knee;Syncope Near;Sacral 4 buckle type fracture Presentation: 08/05 18:52 Chief complaint: Patient states: he fell twice today, once outside while trying to step ap3 over a wire fence and another time when in the restroom. the patient reports pain to his coccyx area. patient has a right hand abrasion and right knee abrasion. patient denies LOC on both falls. patient also denies hitting his head. patient is not on blood thinners. Coronavirus screen: At this time, the client does not indicate any symptoms associated with coronavirus-19. Ebola Screen: No symptoms or risks identified at this time. Initial Sepsis Screen: Does the patient meet any 2 criteria? No. Patient's initial sepsis screen is negative. Does the patient have a suspected source of infection? No. Patient's initial sepsis screen is negative. Risk Assessment: Do you want to hurt yourself or someone else? Patient reports no desire to harm self or others. Onset of symptoms was August 05, 2023. 18:52 Method Of Arrival: Ambulatory ap3 18:52 Acuity: TRACI 4 ap3 Triage Assessment: 18:54 General: Appears in no apparent distress. Behavior is calm, cooperative, appropriate ap3 for age. Pain: Complains of pain in buttocks, right hand and right knee Pain currently is 6 out of 10 on a pain scale. at worst was 8 out of 10 on a pain scale. Neuro: Level of Consciousness is awake, alert, obeys commands, Oriented to person, place, time, situation. Cardiovascular: Patient's skin is warm and dry. Respiratory: Airway is patent Respiratory effort is even, unlabored, Respiratory pattern is regular, symmetrical. Derm: Wound noted right hand and right knee. 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; GERD; High Cholesterol; Hypertension; ap3 - PSHx: 18:54 hernia repair with mesh; ap3 Historical Immunization: - Administered Vaccines 20:50 Acetaminophen PO 650 mg cm10 20:48 Tetanus-Diphtheria Toxoid IM Adult 0.5 ml cm10 Family Helper: [employer]; Exp: Sat Mar 12 2025; Lot #: [id number]; Series: 1 of 1; Patient Consent: Obtained; Date/Time: ; Source Name: Dennys Hassan; Source Relationship: Self; Address Information: [address] [place] [address]; ; Education: Provided; VIS Presented Date: ; VIS Publication: Tetanus/Diphtheria (Td) Vaccine VIS 01/28/2017 (historic) - Immunization history:: Client reports receiving the 2nd dose of the Covid vaccine. - Social history:: Smoking status: Patient denies any tobacco usage or history of. Screenin:[facility] ED Fall Risk Assessment (Adult) History of falling in the last 3 months, ap3 including since admission Yes- fall prone (multiple falls) (3 pts) Confusion or Disorientation No (0 pts) Intoxicated or Sedated No (0 pts) Impaired Gait No (0 pts) Mobility Assist Device Used No (0 pt) Altered Elimination No (0 pt). Abuse screen: Denies threats or abuse. Nutritional screening: No deficits noted. Tuberculosis screening: No symptoms or risk factors identified. Assessment: 20:22 Reassessment: Pt refusing CT scan. Provider made aware. cm10 Vital Signs: 18:52 BP 148 / 86; Pulse 68; Resp 18; Temp 97.9; Pulse Ox 100% ; Weight 80.74 kg; Pain 6/10; ap3 20:10 BP 137 / 80 Supine; Pulse 56; Resp 14; Pulse Ox 100% on R/A; cm10 20:13 BP 140 / 86 Sitting; Pulse 64; Resp 16; Pulse Ox 98% on R/A; cm10 20:15 BP 139 / 87 Standing; Pulse 61; Resp 15; Pulse Ox 99% on R/A; cm10 20:50 BP 138 / 82; Pulse 56; Resp 16; Pulse Ox 100% on R/A; cm10 21:45 BP 136 / 79; Pulse 56; Resp 18 S; Pulse Ox 96% on R/A; cm10 22:00 BP 133 / 81; Pulse 55; Resp 16 S; Pulse Ox 97% on R/A; cm10 22:45 BP 147 / 82; Pulse 56; Resp 18 S; Pulse Ox 99% on R/A; cm10 18:52 Pain Scale: Adult ap3 ED Course: 18:34 Patient arrived in ED. kj1 18:34 Daniel Arango PA is PHCP. cp 18:34 Ryan Sevilla DO is Attending Physician. cp 18:54 Triage completed. ap3 18:56 Arm band placed on left wrist. ap3 19:52 Basic Metabolic Panel Sent. cm10 19:52 CBC with Diff Sent. cm10 19:52 Magnesium Sent. cm10 19:52 PT-INR Sent. cm10 19:52 Troponin HS Sent. cm10 19:52 Initial lab(s) drawn, by me, sent to lab. EKG done. Inserted saline lock: 20 gauge in cm10 left antecubital area, using aseptic technique. Blood collected. 19:58 Magaly Hill, RN is Primary Nurse. cm10 20:14 XRAY Hand RIGHT 3 View In Process Unspecified. EDMS 20:14 XRAY Knee RIGHT 3 view In Process Unspecified. EDMS 20:30 CT Traumagram (Head C Spine CAP wo con) In Process Unspecified. EDMS 22:19 Drake Patel MD is Referral Physician. cp 22:19 Wilton Lam MD is Referral Physician. cp 22:54 Patient has correct armband on for positive identification. Provided Education on: ER cm10 process and procedures. . 22:54 No provider procedures requiring assistance completed. IV discontinued, intact, cm10 bleeding controlled, No redness/swelling at site. Pressure dressing applied. Wound care: to abrasion, was cleaned with Hibiclens, dressed with 4X4s, Kerlix, band aid. Administered Medications: 20:48 Drug: Tetanus-Diphtheria Toxoid IM Adult 0.5 ml IM once; Provide Vaccine Information cm10 Statement (VIS). {Family Helper: [employer]; Exp: Sat Mar 12 2025; Lot #: [id number]; Series: 1 of 1; Patient Consent: Obtained; Date/Time: ; Source Name: Dennys Hassan; Source Relationship: Self; Address Information: [address] [facility], [facility] [address]; ; Education: Provided; VIS Presented Date: ; VIS Publication: Tetanus/Diphtheria (Td) Vaccine VIS 01/28/2017 (historic)} Route: IM; Site: left deltoid; 21:25 Follow up: Response: (VIS) Vaccine information sheet provided today. Questions and/or cm10 concerns addressed. VIS edition date: May 25, 2021.; No adverse reaction 20:50 Drug: Acetaminophen PO 650 mg PO once Route: PO; cm10 21:25 Follow up: Response: No adverse reaction cm10 Medication: 21:26 Vaccine Information Statement (VIS) provided today. Questions and/or concerns cm10 addressed. VIS edition date: May 25, 2021. Outcome: 22:21 Discharge ordered by MD. cp 22:54 Discharged to home ambulatory, cm10 22:54 Condition: good 22:54 Discharge instructions given to patient, Instructed on discharge instructions, follow up and referral plans. medication usage, Demonstrated understanding of instructions, follow-up care, wound care, 22:54 Patient left the ED. cm10 Signatures: Dispatcher [employer] EDMS Daniel Arango PA PA cp Prokisch, Amanda, RN RN [email or web address] Rosa Bowman Clarissa RN RN cm10
[2023-08-05 23:17] VITALS: TEMP 97.9
[2023-08-05 23:38] VITALS: BP 147/82; O2SAT 99
--- NOTE | 2023-08-06 12:25 | EKG ---
Test Date: 2023-08-05 Test Time: 19:54:[address] Production Manager: EDITH MEASUREMENT RESULTS: Intervals: Rate: 57 RI: 248 QRSD: 98 QT: 434 QTc: 422 [place]: P: 32 RI: 248 QRS: -39 T: 25 INTERPRETIVE STATEMENTS: Sinus bradycardia with 1st degree AV block Left axis deviation Abnormal ECG Compared to ECG 08/31/2015 14:56:08 First degree AV block now present Electronically Signed On 08-06-23 12:23:34 CDT by Krzysztof Pisano
== END 2023-08-05 22:54 | disposition home or self-care (01) ==
LOC: ER 18:30
DX: S32.17XA Type 4 fracture of sacrum, initial encounter for closed fracture (principal); S80.01XA Contusion of right knee, initial encounter; S60.221A Contusion of right hand, initial encounter; W01.10XA Fall on same level from slipping, tripping and stumbling with subsequent striking against unspecified object, initial encounter; Z88.3 Allergy status to other anti-infective agents
CPT/HCPCS: 36415; 70450; 71250; 72125; 80048; 83735; 84484; 85025; 85610; 93005

== ENCOUNTER 2024-09-03 16:41 | Inpatient (IN) | payer OTHER, BC ==
[2024-09-04] MEDS: GUAIFENESIN/DM 5 ML UCUP PO PRN ×2 (00:21→06:42)
[2024-09-04] MEDS: MELATONIN 3 MG TABLET PO PRN (00:21)
[2024-09-04] MEDS: ACETAMINOPHEN 500 MG TAB PO PRN (01:06)
[2024-09-04] MEDS: METOPROLOL TAR 25 MG TAB PO SCH (05:04)
[2024-09-04] MEDS: ASPIRIN EC 81 MG TAB PO SCH (06:42)
[2024-09-04] MEDS: DOCUSATE NA 100 MG CAP PO SCH (06:42)
[2024-09-04] MEDS: PANTOPRAZOLE 40MG TABLET PO SCH (06:42)
[2024-09-04] MEDS: FERROUS SULFATE 325 MG TAB PO SCH (06:42)
[2024-09-04] MEDS: FUROSEMIDE 20 MG TABLET PO SCH (06:43)
[2024-09-04] MEDS: AMIODARONE HCL 200 MG TAB PO SCH (06:43)
[2024-09-04] MEDS: CYANOCOBALAMIN 1,000 MCG TAB PO SCH (06:43)
[2024-09-04 07:22] LABS: Absolute Eosinophils 0.2 K/uL (0-0.5); Absolute Lymphocytes (CBC) 0.4 K/uL (0.7-4.9); Absolute Monocytes 0.9 K/uL (0.1-1.3); Absolute Neutrophil 6.1 K/uL (1.8-8.0); Basophils % 0.3 % (0-1.3); Eosinophils % 2.4 % (0-4.4); Hematocrit 25.8 % (39.6-49.0); Hemoglobin 8.4 g/dL (13.6-17.9); Lymphocytes % 5.4 % (15.3-44.8); MCH 30.4 pg (27.0-35.0); MCHC 32.7 g/dL (32.0-36.0); MCV 92.8 fL (80-100); MPV 8.2 fL (7.6-11.3); Monocytes % 11.6 % (3.3-12.3); Neutrophils % 80.3 % (41.7-73.7); Platelets 194 thou/uL (152-406); RBC Red Blood Cell Count 2.78 M/uL (4.33-5.43); Red Cell Distribution Width 15.7 % (12.1-15.2)
[2024-09-04 07:34] LABS: Albumin 2.5 g/dL (3.4-5.0); Anion Gap 8.3 mEq/L (5.0-15.0); Magnesium 2.3 mg/dL (1.6-2.4); Potassium 4.3 mEq/L (3.5-5.1); Prealbumin 12.2 mg/dL (20-40)
[2024-09-04 09:40] LABS: Anisocytosis SLIGHT; Blood Morphology Comment NOTED (NOT SEEN); Macrocytosis SLIGHT; Platelet Estimate ADEQ; White Blood Cell Scan OK (OK)
[2024-09-04] MEDS: FLUTICASONE 50MCG NASAL SPRAY NAS SCH (10:09)
[2024-09-04 10:58] VITALS: BMI 29.2
[2024-09-04] MEDS: ATORVASTATIN 40 MG TAB PO SCH (19:16)
[2024-09-04] MEDS: AMLODIPINE 2.5 MG TAB PO SCH (19:20)
[2024-09-04] MEDS: HOME MED 1 EA UNK (Mirabegron 50 MG) PO SCH (19:22)
[2024-09-05] MEDS: APIXABAN 2.5 MG TABLET PO SCH (08:59)
[2024-09-05] MEDS: LIDOCAINE 4% PATCH TOP SCH (08:59)
[2024-09-05] MEDS: TRAZODONE 50 MG TABLET PO PRN (21:48)
--- NOTE | 2024-09-06 08:12 | HP ---
Date of Admission: 09/03/2024 Time Of Service: 6 p.m. Chief Complaint: "I had heart surgery and I have some tenderness in the right chest." History Of Present Illness: Mr. Hassan is an -hrqp-azh patient with hypertension; dysli pidemia; prostate cancer, status post radiation treatment, now on hormone therapy, who has a single k idney and had significant mitral regurgitation. He experienced significant chest pain at home. He w as seen by his lieutenant general for routine followup. His echocardiogram showed ejection fraction 55% to 60% with left atrium being severely dilated. There is mild aortic regurgitation and severe mitral r egurgitation with mitral valve prolapse with possible clear mitral valve. There is also mild tricusp id regurgitation. A CT scan of his chest did show ground glass opacifications. A CT on 06/22/2024 s hows mild fibrotic traction bronchiectasis and he was admitted to [facility] on 08/25/2024 for th e mitral valve replacement and amputation of the left atrial appendage. Chest tube was placed and th en been drained and removed. He was weaned from 3 L of oxygen via nasal cannula down to room air. H e was managed with metoprolol, amiodarone, Lipitor, aspirin. He was placed on a cardiac diet for gly cemic control. He did have a drop in his hemoglobin and was monitored for possible transfusion. Als o, there were some episodes of orthostatic hypotension. He was evaluated by the physical therapy ser vice and found to require supervision for bed mobilization, fkn-mh-zvwks, and ambulation. He did fat igue very quickly and took short shuffling steps. He did require assistance; min assist for his acti vities of daily living and upper/lower body dressing. As a result, he was determined to be an approp riate candidate for inpatient rehabilitation to help him return to his prior level of functioning. I npatient rehabilitation will assist him to not return to hospital once back home and to help him retu rn to prior level of functioning. Admission is necessary and important to reduce his risk of worseni ng. If he is to be sent to fdc or home, chances are he will not do very well. Past Medical History: Hypertension; dyslipidemia; prostate cancer, treated with radiation and hormon al therapy. He has 1 kidney. He has mitral valve regurgitation and treated. History of dementia. Allergies: NEOMYCIN AND POLYMYXIN B. CHEST X-RAY ON 08/24 SHOWS NO RADIOGRAPHIC ABNORMALITIES. CHEST X-RAY ON 08/27 SHOWS REMAINING HARDW ARE, UNCHANGED. CARDIOMEDIASTINAL CONTOURS ARE STABLE. MILD PULMONARY EDEMA. MODERATE RIGHT PLEURA L EFFUSION. BIBASILAR OPACITIES SUGGESTIVE OF ATELECTASIS ALTHOUGH PNEUMONIA SHOULD BE EXCLUDED CLIN ICALLY. NO PNEUMOTHORAX SEEN. CHEST X-RAY ON August SHOWS STABLE MILD CARDIOMEGALY. CONSOLID ATION OF RIGHT LOWER CHEST WELL MILD INFILTRATE IN THE MID LUNGS AND LEFT LOWER LUNG. SMALL RI GHT PLEURAL EFFUSION. NO ACUTE SKELETAL OR SOFT TISSUE ABNORMALITIES. Medications: Extra Strength Tylenol 500 mg every 6 hours as needed, Cordarone 200 mg twice daily, No rvasc 2.5 mg at bedtime, Eliquis 2.5 mg twice daily, aspirin 81 mg daily, Lipitor 40 mg at bedtime, v itamin B12 500 daily, Colace 100 mg twice daily, ferrous sulfate 325 mg daily, Lasix 20 mg daily, Robitussin every 4 hours as needed, lidocaine patch apply topically daily, melaton in 3 mg at bedtime, Lopressor 12.5 mg twice daily, Protonix 40 mg daily, Mylicon mg every 6 hours as needed. Laboratory Studies: White blood cell count 7.6, hemoglobin 8.4, platelets 194. Sodium 136, potassiu m 4.3, chloride 103, carbon dioxide 29, BUN 25, creatinine 1.07, glucose 97. Calcium 8.9, magnesium 2.3, albumin 2.5. Prealbumin 12.2. Urinalysis completely normal. Family History: Noncontributory. Social History: No alcohol, tobacco, or IV drug use. The patient lives in single family home. Code Status: Full Code. Review of Systems: He does report to the right chest there is tenderness on palpation. Otherwise, he says he is doing w ell. His surgical site not much bothering him. Did have some mild cough, some difficulty with his s leep, but is otherwise doing well. Current Level Of Functioning: He currently requires supervision for eating and oral hygiene as well. For showering, moderate assistance. Upper body dressing and lower body dressing, moderate assistan ce. Rolling left to right and right to left, contact guard assistance. Cov-am-zmgqe, contact guard assistance. Transfer from bed to chair to toilet, contact guard assistance. Ambulation, contact gua rd assistance. With a rolling walker, he covered 200 feet with contact guard assistance. Physical Examination: Vital Signs: Blood pressure 109/61, pulse 80, respiratory rate 18, temperature 98.2, oxygen saturati on 99%. Weight 192 pounds, height 5 feet 8 inches, BMI 29. General: Mr. Hassan is resting comfortably in bed. He is in no significant distress. Just has m ild tenderness to the right chest to touch. HEENT: Otherwise, he is normocephalic, atraumatic. Chest: Midline sternotomy is with good hemostasis. Extremities: No clubbing, cyanosis, or edema. Neurologic: He has no focal neurological deficits. Rehab And Medical Assessment And Plan: Mr. Hassan is admitted to the inpatient rehabilitation [facility] with impairment category 14, cardiac. His impairment group code is 09, cardiac. Etiologic diagnos is: Mitral valve replacement from stenosis. Comorbidities are atrial fibrillation, cardiomegaly, de creased mobility, decreased physical functioning, dyslipidemia, hypertension, orthostatic hypotension , pleural effusion. Plan: 1.He will have physical, occupational, and if need be speech therapy hours, 5 of 7 days. 2.We will continue management of his blood pressure with amiodarone 200 mg twice daily, Norvasc 2.5 mg twice daily, and Lopressor 12.5 mg twice daily. Mylicon for bloating, Protonix for reflux, melato amanda 3 mg for insomnia, lidocaine patch apply topically to the right chest as needed, Robitussin 10 mL every 4 hours as needed for cough, Lasix 20 mg daily for fluid management. He has Flonase for aller gies, ferrous sulfate for iron deficiency and his anemia, Colace for stool softening and reducing ris k of constipation, aspirin for stroke risk reduction, Lipitor for dyslipidemia, and Eliquis for DVT p rophylaxis, and Tylenol for pain. Comorbidities That Are Impacting Rehabilitation: Of course midline sternotomy and precautions ____ force. He does have his chest pillow, which he is holding onto. Those will have to be worked w ithin his parameters as he does therapy. He is aware of that. He is following the sternal precautio ns properly. He has comorbidities that are fairly well controlled. We will have to continue monitor ing his hemoglobin and hematocrit, which are low. He may require blood transfusion and will have inc entive spirometry. We will check chest x-ray to rule out presence of pneumonia, which one of the elmer or chest x-rays suggested possibility. He may require IV antibiotics depending on his white blood ce ll count spikes or urinalysis suggested urinary tract infection. Rehab Specific Plan: Mr. Hassan will have physical and occupational therapy 3 hours a day, 5 of 7 days to improve his ability to transfer from bed to chair to a wheelchair to toilet to shower to per form toileting and showering. Occupational therapy to help with his upper and lower body dressing, d onning/doffing footwear, and performing all activities of daily living. Mr. Hassan has a good understanding of the process of admission to inpatient rehabilitation facili and how he will benefit from physical, occupational, and speech therapy. If need be, additional h elp will be provided by the hospitalist service. However, he will have 24 hours a day, 7 days a week skilled rehabilitation nursing, daily physician evaluation and management, and Manager Requirements evalu ation and management for his discharge planning. Barriers To Discharge: Currently, his sternal precaution is not necessarily a barrier. He is likely to be able to work around those. As risk of a deep vein thrombus is present, the patient does have Eliquis. He is not on the full dose of the Eliquis, but 2.5 mg daily along with an aspiri n as the atrial issue was addressed by the atrial appendage. Length Of Stay: About 10 days. Disposition: Home and depending on how he is doing, may be able to continue therapy on an outpatient basis. Prognosis: Good. Code Status: Full Code. Rehab Specific Goals: 1.Become independent with upper and lower body dressing, donning/doffing footwear. 2.Independently ambulate with a rolling walker 250 feet. 3.Independently push wheelchair 250 feet. 4.Independently go up and down 10 steps with bilateral handrails. 5.Independently perform all cognitive functioning. The above goals were reviewed with Mr. Hassan and he is in agreement. By signing this document, I acknowledge I personally performed a full physical examination on Mr. Adal espinoza no later than 24 hours after his admission to the inpatient rehabilitation facility and determ ined that he is able to tolerate the above course of treatment at an intensive level for a reasonable period of time. A detailed individualized plan of care for him will be completed by hospital day 4 based on the preadmission screen, history and physical, and therapy evaluations. SAM Voice ID: [id number]
[2024-09-06] MEDS: ENSURE ENLIVE 237 ML CAN PO SCH (09:47)
[2024-09-06] MEDS: ACETAMINOPHEN 325 MG TABLET PO PRN (10:40)
--- NOTE | 2024-09-06 16:03 | RAD REPORT ---
EXAMINATION: ONE VIEW CHEST XR CLINICAL INDICATION: Cough TECHNIQUE: Frontal chest projection is submitted. Examination is limited by patient positioning and t echnique. COMPARISON: 07/05/2024 FINDINGS: Mild to moderate bilateral pulmonary opacities which may represent pulmonary edema or pneumonia. Find ings are more prominent on the right. The heart is moderately enlarged in size. Sternotomy IMPRESSION: Hhrb-ck-vwogmldu bilateral pulmonary opacities likely representing pulmonary edema or pneumonia.
[2024-09-06] MEDS ORDERED: BENZONATATE 100 MG CAP PO PRN (19:06)
[2024-09-06] MEDS ORDERED: ALBUTEROL 2.5 MG/3 ML NEB SOL NEB PRN (19:06)
[2024-09-06] MEDS: TRAMADOL HCL 50 MG TAB PO PRN (19:46)
[2024-09-06] MEDS: GABAPENTIN 100 MG CAP PO SCH (19:46)
[2024-09-06] MEDS: HYDROCODONE/APAP 5/325 MG TAB PO PRN (21:23)
--- NOTE | 2024-09-06 23:34 | PN ---
Date of Progress Note: 09/06/2024 Time Of Service: 1:25 p.m. Subjective: Mr. Hassan is resting in his room. Does report some moderate right chest and left ch est twinges and pain, where he had surgery for his mitral valve stenosis and had repair done. He lulu d the pain can occur sometimes as he tried to deep breathe and it is on the left side consistent with some form of pleurisy following surgery. Objective: Again, mild pain in the chest and some myalgias, arthralgias. No rash. No weight change . No headache. Some difficulty with sleep. Physical Examination: Vital Signs: Blood pressure 136/72, pulse 81, respiratory rate 16, temperature 97.4, oxygen saturati on 94%. General: Again, Mr. Hassan is resting comfortably. He is in no significant distress. HEENT: He is normocephalic, atraumatic. Sclerae anicteric. Oropharynx pink, moist. Neck: Supple. Chest: Clear. Extremities: He does not have any significant edema and chest surgical site has good hemostasis. Laboratory Studies: White blood cell count 7.6, hemoglobin 8.4, platelets 194. Sodium 136, potassiu m 4.3, chloride 103, carbon dioxide 29, BUN 25, creatinine 1.07, calcium 8.9, magnesium 2.3, albumin 2.5, prealbumin 12.2. Urinalysis completely normal. X-ray/imaging: Chest x-ray done earlier today showed fwgn-gt-hydibiae bilateral pleural opacities re presenting pulmonary edema or pneumonia. As noted, he did have recent chest surgery. He will be put on and encouraged to use incentive spirometry and the patient currently has no fever. No signs of i nfection or pneumonia. However, repeat chest x-ray may be done to look for clearing of fluid as he d oes aggressive use of incentive spirometry. In addition, nebulizer treatment will be added on board. Medications: Tylenol 650 mg every 4 hours as needed, albuterol nebulizer 2.5 mg every 6 hours as nee ded, Cordarone 200 mg twice daily, Norvasc 2.5 mg daily, Eliquis 2.5 mg twice daily, aspirin 81 mg da david, Lipitor 40 mg at bedtime, Tessalon Perles 100 mg every 6 hours, vitamin B12 500 mcg daily, Colac e 100 mg twice daily, ferrous sulfate 325 mg daily, Flonase 2 sprays daily as needed, Lasix 20 mg manda ly, gabapentin 100 mg twice daily, Robitussin 10 mg every 4 hours as needed, lidocaine patch apply to pically daily, melatonin 3 mg at bedtime, Lopressor 12.5 mg twice daily, Ensure Enlive 237 mL daily, Protonix 40 mg daily, Mylicon 180 mg daily, tramadol 50 mg every 6 hours as needed, and Desyrel 50 mg at night for insomnia, which the patient did have a complaint about, difficulty sleeping . Progress Made With Physical And Occupational Therapy: With physical therapy today, he was able to co mplete wheelchair mobilization 50 feet 6 times with standby assistance. Did need some rest breaks, c ompleted 5 sets x2. Lkc-gh-zateg transfers with standby assistance and maintained sternal precaution s. With occupational therapy, sternal precautions, given handout, did complete bathing, upper and lo wer body dressing, footwear, while adhering to spinal precautions. Supervision for zij-wq-dpelz becker sfers and shower transfers, supervision to ambulate with a rolling walker from room to the area. Assessment: Mr. Hassan is an 79-year-old patient, status post mitral valve replacement for severe stenosis. He is making good progress so far overall with physical and occupational therapy. He has comorbidities of decreased mobility, decreased physical functioning, atrial fibrillation, hypertensi on, orthostatic hypotension, pleural effusion, cardiomegaly. Plan: 1.Continue with physical and occupational therapy, 3 hours a day, 5 of 7 days. 2.Continue with aggressive management of his comorbidities including hypertension. He has difficult y sleeping, insomnia. He has trazodone on board, Flonase for his allergies. He has protein suppleme ntation and iron for his anemia, mild malnutrition, Lipitor for dyslipidemia, Eliquis on board for DV T prophylaxis. He will continue again physical, occupational, and speech therapy, 3 hours a day, 5 of 7 days. LB/MODL Voice ID: [id number] Report ID: [id number]
[2024-09-07] MEDS: FE SULF/FA/VIT B COMP & C TAB PO SCH (07:17)
[2024-09-07] MEDS: ENSURE ENLIVE 237 ML CAN PO SCH (07:21)
[2024-09-07] MEDS: BENZONATATE 100 MG CAP PO PRN (07:29)
[2024-09-07] MEDS: TRAZODONE 50 MG TABLET PO PRN (21:21)
[2024-09-07] MEDS ORDERED: TAMSULOSIN 0.4 MG SR CAP ONE (21:22)
--- NOTE | 2024-09-07 23:18 | PN ---
Subjective: Mr. Hassan is resting comfortably. He does say there is some improvement in his slee ping and his chest pain after adjustments of his medicines were made. He is happy so far with all of his therapy and his results. Objective: Improved chest pain and discomfort, improved ability to sleep at night. Physical Examination: Vital Signs: Blood pressure 116/68, pulse 78, respiratory rate 18, temperature 97.7, oxygen saturati on 97%. Weight 190 pounds, height 5 feet 8 inches, BMI 29. General: Mr. Hassan again is resting comfortably in a chair beside the bed. HEENT: He is normocephalic, atraumatic. Sclerae anicteric. Oropharynx pink and moist. Sutures sti ll in place in the lower abdominal area that will be removed today. Otherwise, good hemostasis of ch est surgical site. No new findings. Laboratory Studies: No new laboratory studies. X-ray/imaging: No new x-rays or imaging. Medications: Medications have been reviewed. He does have [place] for pain. There is also tramadol o n board, Ensure Enlive for malnutrition, lidocaine patch placed as well. Other medications as indica perlita. Progress Made With Physical And Occupational Therapy: With physical therapy today, he was able to am bulate with a rolling walker 325 feet, 250 feet, 750 feet, 500 feet, and 150 feet with contact guard assistance. He was up and down 15 steps with bilateral handrails with standby assistance, multiple s it-to-stand transfers done with independence. With occupational therapy, supervision for toilet hygi odalis, oral hygiene, grooming with wheelchair, all independent. Assessment: Mr. Hassan is an 79-year-old patient in the rehabilitation unit with mitral valve rep lacement. He is doing excellent with physical therapy. His comorbidities are well managed including his decreased physical functioning and decreased mobility, atrial fibrillation, hypertension, orthos tatic hypotension, pleural effusion, and cardiomegaly, all are stably managed. Plan: Continue with physical and occupational therapy, 3 hours a day, 5 of 7 days. His list of zach rbid condition medications are continued and he has protein drink for malnutrition, Eliquis for DVT p rophylaxis, trazodone for his insomnia, Flonase for allergies, and he will continue therapy. He will be ready for discharge by the weekend. LB/MODL Voice ID: [id number] Report ID: [id number]
[2024-09-08] MEDS: LIDOCAINE 4% PATCH TOP SCH (08:55)
--- NOTE | 2024-09-09 04:58 | PN ---
Date of Progress Note: 09/08/2024 Time Of Service: 1:25 p.m. Subjective: Mr. Hassan is resting comfortably. He is happy so far with his progress. Says the p ain in the anterior chest wall is improving. Knee pain also still there, but not very significant. Objective: No myalgias, arthralgias, rash, or other complaints. He does report much better sleeping and is overall doing very better in terms of his therapy and recovery. Physical Examination: Vital Signs: Blood pressure 120/65, pulse 82, respiratory rate 16, temperature 98.5, oxygen saturati on 98%. General: Mr. Hassan is sitting in a chair beside his bed. HEENT: He is normocephalic, atraumatic. Sclerae anicteric. Oropharynx pink and moist. Neck: Supple. Chest: Clear. Has good hemostasis at the surgical site on the chest wall. Laboratory Studies: No new laboratory studies. X-ray/imaging: No new x-rays or imaging. Medications: Medications have been reviewed. His lidocaine patch added to the knee. We will contin ue with Protonix. Otherwise, medications are unchanged. Progress Made With Physical, Occupational, And Speech Therapy: With physical therapy today, he perfo rmed multiple oywqto-mk-xqi transfers independently, dju-wc-kpaqx transfers independently as well. A mbulated 250 feet, 600 feet 3 times, and 1250 feet once with supervision using a rolling walker. Up and down 15 and 20 steps using bilateral handrails, all independently. With occupational therapy, in dependent with tjj-ho-clrbu transfers, back to sidestepping and to grab bars, did very well. Ambulat ed from gym to room and then back with supervision. Independent with toilet hygiene. His speech the rapy sessions, he did very well. Recalled 4/4 unrelated words at 5 minutes. Used organizational thi nking skills. Demonstrated convergent and divergent naming with 90% accuracy and no cues. He did sc ore a 15 on the BIMS test, 24 on the SLUMS test showing mild impairment in cognition. Assessment: Mr. Hassan is an 79-year-old patient, admitted to the rehabilitation unit after tamar l valve replacement for severe stenosis. He has decreased mobility, decreased physical functioning, atrial fibrillation, hypertension, orthostatic hypotension, pleural effusion and is doing very well. Plan: 1.We will continue with physical, occupational, and speech therapy until discharge 3.5 hours, 5 of 7 days. 2.Continue DVT prophylaxis using Eliquis, Flonase for allergies. For pain, hydrocodone or [place]. A lbuterol for shortness of breath. Amiodarone for heart rate and blood pressure control. He has Norv asc for hypertension control. Eliquis 2.5 mg twice daily for DVT prophylaxis. Aspirin 81 mg daily f or stroke risk reduction. Lipitor for his dyslipidemia. Tessalon Perles for cough, which actually i s working very well and sleeps at night without cough. Lasix 20 mg daily. He has ferrous sulfate fo r anemia, Colace for constipation, gabapentin for neuropathic pain. Again, lidocaine patch is on boa rd. Ensure Enlive on board. Simethicone for gas. We will continue therapy and his discharge to be in 2 days. ANATOLIY/KALYANI Voice ID: [id number] Report ID: [id number]
[2024-09-09 06:13] LABS: Absolute Basophils 0.1 K/uL (0-0.5); Absolute Eosinophils 0.1 K/uL (0-0.5); Absolute Lymphocytes (CBC) 0.3 K/uL (0.7-4.9); Absolute Monocytes 0.8 K/uL (0.1-1.3); Absolute Neutrophil 4.1 K/uL (1.8-8.0); Eosinophils % 1.9 % (0-4.4); Hematocrit 27.6 % (39.6-49.0); Hemoglobin 9.1 g/dL (13.6-17.9); Lymphocytes % 5.4 % (15.3-44.8); MCH 30.4 pg (27.0-35.0); MPV 7.3 fL (7.6-11.3); Monocytes % 14.7 % (3.3-12.3); Nucleated Red Blood Cells % 0.1 % (0-0); Platelets 274 thou/uL (152-406)
[2024-09-09 06:32] LABS: Albumin 2.5 g/dL (3.4-5.0); Anion Gap 6.2 mEq/L (5.0-15.0); Magnesium 2.1 mg/dL (1.6-2.4); Potassium 4.2 mEq/L (3.5-5.1); Prealbumin 13.5 mg/dL (20-40)
[2024-09-09] MEDS: PANTOPRAZOLE 40MG TABLET PO SCH (07:22)
[2024-09-09] MEDS ORDERED: DOCUSATE NA/SENNA CONC 1 TAB PO PRN (13:54)
[2024-09-09] MEDS: SIMETHICONE 80 MG CHEWABLE TAB PO PRN (17:26)
[2024-09-09] MEDS ORDERED: SIMETHICONE 80 MG CHEWABLE TAB PO PRN (17:28)
--- NOTE | 2024-09-10 01:19 | PN ---
Subjective: Mr. Hassan, in terms of subjective, is doing well. Happy so far with therapy, johni zing well. He says his chest pain from the median sternotomy is not stopping him and he is thriving very closely and actually ready for discharge he says by the morning. Objective: Mild myalgias. No significant arthralgias. No psychiatric issues. No complaints such a s headache or bowel movement issues or so. Physical Examination: Vital Signs: Blood pressure 109/66, pulse 76, respiratory rate 16, temperature 98.1, oxygen saturati on 92%. General: Mr. Hassan is sitting in a chair beside bed. HEENT: He appears normocephalic, atraumatic. Sclerae anicteric. Oropharynx pink and moist. Extremities: No significant clubbing, cyanosis, edema in the lower extremities. His surgical site h as good hemostasis. Laboratory Studies: White blood cell count 5.3, hemoglobin 9.1, platelets 274. Sodium 137, potassiu m 4.2, chloride 108, carbon dioxide 27, BUN is 21, creatinine 1, glucose 89, calcium 8.6, magnesium 2 .1, albumin 2.5, prealbumin 13.5. X-ray/imaging: No new x-rays or imaging. Progress Made With Physical, Occupational, And Speech Therapy: With physical therapy today, he ambul ated 750 feet with a rolling walker independently and a single prong cane 500 feet twice with standby assistance. Also, another session of ambulation 750 feet with a single prong cane with standby assi stance outside in the grass and on even surfaces up and down a curb. He ascended and descended 15 st eps with bilateral handrails independently. Zunwko-yb-hxi and qbc-hy-yrnkm transfers done independen tly. He was independent with toilet and shower transfer, using grab bars. Toilet hygiene, independe nt. Upper and lower body dressing, donning and doffing of footwear with sternal precautions, all don e independently. The patient was seen by speech pathology. He recalled 3 of 4 unrelated pictures wi thout a memory strategy and with a memory strategy 4 of 4 pictures after 5 minutes were recalled. He was noted to be ready for discharge tomorrow. Assessment: Mr. Hassan is an 79-year-old patient in rehabilitation unit with severe mitral valve stenosis status post mitral valve replacement. Comorbidities are decreased mobility, decreased physi rowena function, which have improved very well. He has atrial fibrillation, hypertension, orthostatic h ypotension, pleural effusion, all are well managed. Plan: 1.He will continue with physical, occupation, and speech therapy after his discharge in the morning. 2.DVT prophylaxis, continue with Eliquis; Flonase for allergies. Continue Lasix for fluid managemen t; Tessalon Perles for his cough, he has done very well; Lipitor for dyslipidemia; aspirin for the st roke risk reduction. He has Eliquis again on board for his stroke risk reduction and for DVT prophyl axis; ferrous sulfate for anemia; Colace for constipation; gabapentin for neuropathic pain. He has l idocaine patch in the knees and simethicone for his bloating and gas. LB/MODL Voice ID: [id number] Report ID: [id number]
[2024-09-10 09:23] VITALS: BP 100/67; TEMP 98.1
--- NOTE | 2024-09-10 09:35 | P.RH.PN ---
Estimated Length of Stay: 10 Expected Discharge Date: 09/10/24 Discharge Disposition Plan: Home Family Support: Yes Care Home Goal: Mobility, Transfers, Self Care Vital Signs: Last Vital Signs Temp 98.1 F 09/10/24 08:00 Pulse 68 09/10/24 08:00 Resp 16 09/10/24 08:00 BP 100/67 09/10/24 08:00 Pulse Ox 93 09/10/24 08:00 Laboratory: Laboratory Last Values WBC 5.30 thou/uL (4.3-10.9) 09/09/24 05:15 RBC 3.00 M/uL (4.33-5.43) L 09/09/24 05:15 Hgb 9.1 g/dL (13.6-17.9) L 09/09/24 05:15 Hct 27.6 % (39.6-49.0) L 09/09/24 05:15 MCV 92.0 fL (80-100) 09/09/24 05:15 MCH 30.4 pg (27.0-35.0) 09/09/24 05:15 MCHC 33.0 g/dL (32.0-36.0) 09/09/24 05:15 RDW 16.0 % (12.1-15.2) H 09/09/24 05:15 Plt Count 274 thou/uL (152-406) 09/09/24 05:15 MPV 7.3 fL (7.6-11.3) L 09/09/24 05:15 Neutrophils % 77.0 % (41.7-73.7) H 09/09/24 05:15 Lymphocytes % 5.4 % (15.3-44.8) L 09/09/24 05:15 Monocytes % 14.7 % (3.3-12.3) H 09/09/24 05:15 Eosinophils % 1.9 % (0-4.4) 09/09/24 05:15 Basophils % 1.0 % (0-1.3) 09/09/24 05:15 Absolute Neutrophils 4.1 K/uL (1.8-8.0) 09/09/24 05:15 Absolute Lymphocytes 0.3 K/uL (0.7-4.9) L 09/09/24 05:15 Absolute Monocytes 0.8 K/uL (0.1-1.3) 09/09/24 05:15 Absolute Eosinophils 0.1 K/uL (0-0.5) 09/09/24 05:15 Absolute Basophils 0.1 K/uL (0-0.5) 09/09/24 05:15 Platelet Estimate Adeq 09/04/24 06:41 Anisocytosis Slight 09/04/24 06:41 Macrocytosis Slight 09/04/24 06:41 Morphology Comment Noted (NOT SEEN) 09/04/24 06:41 Sodium 137 mEq/L (136-145) 09/09/24 05:15 Potassium 4.2 mEq/L (3.5-5.1) 09/09/24 05:15 Chloride 108 mEq/L (98-107) H 09/09/24 05:15 Carbon Dioxide 27 mEq/L (21-32) 09/09/24 05:15 Anion Gap 6.2 mEq/L (5.0-15.0) 09/09/24 05:15 BUN 21 mg/dL (7-18) H 09/09/24 05:15 Creatinine 1.00 mg/dL (0.70-1.30) 09/09/24 05:15 Est GFR (CKD-EPI) 76 ml/min (=/>90) L 09/09/24 05:15 Glucose 89 mg/dL (74-106) 09/09/24 05:15 Calcium 8.6 mg/dL (8.5-10.1) 09/09/24 05:15 Magnesium 2.1 mg/dL (1.6-2.4) 09/09/24 05:15 Albumin 2.5 g/dL (3.4-5.0) L 09/09/24 05:15 Prealbumin 13.5 mg/dL (20-40) L 09/09/24 05:15 Urine Color Yellow (Yellow) 09/03/24 00:00 Urine Clarity Clear (Clear) 09/03/24 00:00 Urine pH 6.0 (5.0-7.0) 09/03/24 00:00 Ur Specific [place] 1.022 (1.005-1.030) 09/03/24 00:00 Glucose (UA)(Auto) Negative (Negative) 09/03/24 00:00 Urine Ketones Negative (Negative) 09/03/24 00:00 Urine Blood Negative (Negative) 09/03/24 00:00 Urine Nitrite Negative (Negative) 09/03/24 00:00 Urine Bilirubin Negative (Negative) 09/03/24 00:00 Urine Urobilinogen Normal (Normal) 09/03/24 00:00 Ur Leukocyte Esterase Negative [place]/uL (Negative) 09/03/24 00:00 Urine Total Protein Negative (Negative) 09/03/24 00:00 Smear Scan Ok (OK) 09/04/24 06:41 Weight: 192 lb 11.2 oz Wound Present: No Closed Surgical Incision Present: Yes Negative Pressure Wound Therapy Present: No Physician Update: Labs reviewed and are stable. Doing well with all therapy. Good hemostasis. Mild SOB. Will D/C today with home health. Independent RW 750', up and down 15 steps. Independent with ADLs. Summary: Patient's care plan and usp goals have been reviewed and revised as necessary. Please see the Rehabilitation Signature page for all necessary signatures.
== END 2024-09-10 13:50 | disposition home health service (06) | DRG 950 ==
LOC: 5TH 22:15
PROVIDERS: ADMIT Psychiatry & Neurology Neurology with Special Qualifications in Child Neurology; ATTEND Psychiatry & Neurology Neurology with Special Qualifications in Child Neurology
DX: Z48.812 Encounter for surgical aftercare following surgery on the circulatory system (principal); I95.1 Orthostatic hypotension; I51.7 Cardiomegaly; M79.10 Myalgia, unspecified site; I10 Essential (primary) hypertension; E78.5 Hyperlipidemia, unspecified; C61 Malignant neoplasm of prostate; I48.91 Unspecified atrial fibrillation; F03.90 Unspecified dementia, unspecified severity, without behavioral disturbance, psychotic disturbance, mood disturbance, and anxiety; Z95.2 Presence of prosthetic heart valve; Z90.5 Acquired absence of kidney
CPT/HCPCS: 36415; 71045; 80048; 81001; 82040; 83735; 84134; 85025; 87086; 87088; 92523; 97110; 97116; 97129; 97161; 97165; 97530; 97542; J2003